=== PATIENT | female | born 1950 | race Asian ===

== ENCOUNTER → 2017-11-25 14:48 | Outpatient (CLI) | payer MEDICARE, OTHER, SELFPAY | PROVIDERS: PCP Nurse Practitioner Family; Visit Provider Nurse Practitioner Family | DX: E07.9 Disorder of thyroid, unspecified (principal); Z78.0 Asymptomatic menopausal state | CPT/HCPCS: 77080 ==

== ENCOUNTER → 2019-02-02 14:27 | Outpatient (CLI) | payer MEDICARE, OTHER, SELFPAY ==
--- NOTE | 2019-02-02 | DI.MG.S_ITS ---
BILATERAL DIGITAL SCREENING MAMMOGRAM 3D/2D WITH CAD: 02/02/2019 CLINICAL: Routine screening. Comparison is made to exams dated: 04/11/2017 mammogram and 06/17/2014 mammogram - [facility]. There are scattered fibroglandular elements in both breasts. Current study was also evaluated with a Computer Aided Detection (CAD) system. There are a grouped fine calcifications in the right breast at 11 o'clock middle depth. No other significant masses, calcifications, or other findings are seen in either breast. IMPRESSION: INCOMPLETE: NEEDS ADDITIONAL IMAGING EVALUATION The grouped fine calcifications in the right breast are indeterminate. Additional views are recommended. This exam was interpreted at Station ID: [id number]. NOTE: For mammograms, a report in lay terms will be sent to the patient. Approximately 15% of breast malignancies will not be visualized mammographically. In the management of a palpable breast mass, a negative mammogram must not discourage biopsy of a clinically suspicious lesion. Electronically Signed By: Alexandra cabezas/enrike:02/02/2019 15:43:00 letter sent: Additional Imaging Needed ACR BI-RADS Category 0: Incomplete 3340F
== END ==
PROVIDERS: PCP Nurse Practitioner Family; Visit Provider Nurse Practitioner Family
DX: Z12.31 Encounter for screening mammogram for malignant neoplasm of breast (principal)
CPT/HCPCS: 77063; 77067

== ENCOUNTER → 2019-03-13 13:32 | Outpatient (CLI) | payer MEDICARE, OTHER, SELFPAY ==
--- NOTE | 2019-03-13 | DI.MG.S_ITS ---
UNILATERAL RIGHT DIGITAL DIAGNOSTIC MAMMOGRAM 3D/2D WITH ADDITIONAL VIEWS: 03/13/2019 CLINICAL: Additional evaluation requested from prior study. Comparison is made to exams dated: 02/02/2019 mammogram, 04/11/2017 mammogram, and 06/17/2014 mammogram - [facility]. There are scattered fibroglandular elements in right breast. There are linear fine calcifications in the right breast at 10 o'clock middle depth. There also are grouped fine calcifications in the right breast at 8 o'clock middle depth. No other significant masses or calcifications are seen in the breast. IMPRESSION: PROBABLY BENIGN The linear fine calcifications in the right breast at 10 o'clock middle depth are probably benign. A follow-up mammogram in 6 months is recommended. The grouped fine calcifications in the right breast at 8 o'clock middle depth are probably benign. A follow-up mammogram in 6 months is recommended. A follow-up mammogram in 6 months is recommended to demonstrate stability. This exam was interpreted at Station ID: [id number]. NOTE: For mammograms, a report in lay terms will be sent to the patient. Approximately 15% of breast malignancies will not be visualized mammographically. In the management of a palpable breast mass, a negative mammogram must not discourage biopsy of a clinically suspicious lesion. Electronically Signed By: Zaheer garcia/enrike:03/13/2019 14:56:20 letter sent: Followup Recommended ACR BI-RADS Category 3: Probably benign 3343F
== END ==
PROVIDERS: PCP Nurse Practitioner Family; Visit Provider Nurse Practitioner Family
DX: R92.8 Other abnormal and inconclusive findings on diagnostic imaging of breast (principal); R92.1 Mammographic calcification found on diagnostic imaging of breast
CPT/HCPCS: 77065; G0279

== ENCOUNTER → 2020-02-20 08:32 | Outpatient (CLI) | payer MEDICARE, OTHER, SELFPAY ==
--- NOTE | 2020-02-20 08:56 | DI.MG.S_ITS ---
Patient Name: SKYLAR CLAUDIO date: 1950 Sex: F Attending Physician: Jalen Indications: Date: 02/20/2020 08:49 At the request of: MARVIN COX Procedure: MM diagnostic mammo BI BILATERAL DIGITAL DIAGNOSTIC MAMMOGRAM 3D/2D SHORT-TERM FOLLOW-UP: 02/20/2020 CLINICAL: Patient returns for a 6 month follow up of the right breast, due for bilateral exam. Comparison is made to exams dated: 02/02/2019 mammogram, 04/11/2017 mammogram, and 06/17/2014 mammogram - [facility]. There are scattered fibroglandular elements in both breasts. There are grouped fine calcifications in the right breast at 10 o'clock middle depth. There also are grouped fine calcifications in the right breast at 8 o'clock middle depth. No other significant masses, calcifications, or other findings are seen in either breast. IMPRESSION: PROBABLY BENIGN The grouped fine calcifications in the right breast at 10 o'clock middle depth are probably benign. The grouped fine calcifications in the right breast at 8 o'clock middle depth are probably benign. A follow-up mammogram in 6 months is recommended to demonstrate stability. This exam was interpreted at Station ID: [id number]. NOTE: For mammograms, a report in lay terms will be sent to the patient. Approximately 15% of breast malignancies will not be visualized mammographically. In the management of a palpable breast mass, a negative mammogram must not discourage biopsy of a clinically suspicious lesion. Electronically Signed By: Coleen navarro/:02/20/2020 09:15:19 letter sent: Followup Recommended ACR BI-RADS Category 3: Probably benign 3343F
== END ==
PROVIDERS: PCP Internal Medicine; Referring Provider Internal Medicine; Visit Provider Internal Medicine
DX: R92.8 Other abnormal and inconclusive findings on diagnostic imaging of breast (principal); R92.1 Mammographic calcification found on diagnostic imaging of breast
CPT/HCPCS: 77066; G0279

== ENCOUNTER → 2020-10-13 07:29 | Outpatient (CLI) | payer MEDICARE, OTHER, SELFPAY ==
--- NOTE | 2020-10-13 | DI.MG.S_ITS ---
UNILATERAL RIGHT DIGITAL DIAGNOSTIC MAMMOGRAM 3D/2D SHORT-TERM FOLLOW-UP: 10/13/2020 CLINICAL: Short term follow up of the right breast. Comparison is made to exams dated: 02/20/2020 mammogram, 03/13/2019 mammogram, 02/02/2019 mammogram, and 04/11/2017 mammogram - [facility]. There are scattered fibroglandular elements in right breast. There are stable grouped fine calcifications in the right breast at 10 o'clock middle depth. There also are stable grouped fine calcifications in the right breast at 8 o'clock middle depth. No other significant masses or calcifications are seen in the breast. IMPRESSION: PROBABLY BENIGN The stable grouped fine calcifications in the right breast at 10 o'clock middle depth are probably benign. The stable grouped fine calcifications in the right breast at 8 o'clock middle depth are probably benign. A follow-up mammogram in 6 months is recommended to demonstrate stability. Patient will also be due for left breast mammogram at that time. Exam findings were conveyed to the patient. This exam was interpreted at Station ID: [id number]. NOTE: For mammograms, a report in lay terms will be sent to the patient. Approximately 15% of breast malignancies will not be visualized mammographically. In the management of a palpable breast mass, a negative mammogram must not discourage biopsy of a clinically suspicious lesion. Electronically Signed By: Nile Lehman M.D. [facility] [place]:10/13/2020 09:29:57 letter sent: Followup Recommended ACR BI-RADS Category 3: Probably benign 3343F
== END ==
PROVIDERS: PCP Internal Medicine; Referring Provider Internal Medicine; Visit Provider Internal Medicine
DX: R92.8 Other abnormal and inconclusive findings on diagnostic imaging of breast; R92.1 Mammographic calcification found on diagnostic imaging of breast
CPT/HCPCS: 77065; G0279

== ENCOUNTER → 2021-04-04 08:02 | Outpatient (CLI) | payer MEDICARE, OTHER, SELFPAY ==
--- NOTE | 2021-04-04 08:03 | DI.MG.S_ITS ---
BILATERAL DIGITAL SCREENING MAMMOGRAM 3D/2D WITH CAD: 04/04/2021 CLINICAL: Routine screening. Comparison is made to exams dated: 10/13/2020 mammogram, 02/20/2020 mammogram, 03/13/2019 mammogram, and 02/02/2019 mammogram - [facility]. There are scattered fibroglandular elements in both breasts. Current study was also evaluated with a Computer Aided Detection (CAD) system. There are grouped fine calcifications in the left breast middle depth superior region seen on the mediolateral oblique view only. These are more prominent and increased in size. No other significant masses, calcifications, or other findings are seen in either breast. IMPRESSION: INCOMPLETE: NEEDS ADDITIONAL IMAGING EVALUATION The grouped fine calcifications in the left breast are indeterminate. Additional views with possible ultrasound are recommended. This exam was interpreted at Station ID: [id number]. NOTE: For mammograms, a report in lay terms will be sent to the patient. Approximately 15% of breast malignancies will not be visualized mammographically. In the management of a palpable breast mass, a negative mammogram must not discourage biopsy of a clinically suspicious lesion. Electronically Signed By: Alexandra cabezas/enrike:04/06/2021 09:12:57 letter sent: Additional Imaging Needed ACR BI-RADS Category 0: Incomplete 3340F
== END ==
PROVIDERS: PCP Internal Medicine; Referring Provider Internal Medicine; Visit Provider Internal Medicine
DX: Z12.31 Encounter for screening mammogram for malignant neoplasm of breast (principal)
CPT/HCPCS: 77063; 77067

== ENCOUNTER → 2021-07-29 08:39 | Outpatient (CLI) | payer MEDICARE, OTHER, SELFPAY ==
--- NOTE | 2021-07-29 | DI.MG.S_ITS ---
UNILATERAL LEFT DIGITAL DIAGNOSTIC MAMMOGRAM 3D/2D WITH ADDITIONAL VIEWS: 07/29/2021 CLINICAL: Additional evaluation requested from prior study. Comparison is made to exams dated: 04/04/2021 mammogram, 02/20/2020 mammogram, 02/02/2019 mammogram, and 04/11/2017 mammogram - [facility]. There are scattered fibroglandular elements in left breast. There are grouped fine dystrophic calcifications in the left breast at 1 o'clock middle depth. These are seen in additional views. These are more prominent than prior years, but were present in 2019 to a fairly similar extent. No other significant masses or calcifications are seen in the breast. IMPRESSION: PROBABLY BENIGN The grouped fine dystrophic calcifications in the left breast most likely are fat necrosis or a degenerating fibroadenoma and are probably benign. A follow-up left mammogram in 6 months is recommended to demonstrate stability. Findings and recommendations were conveyed to the patient at time of exam. This exam was interpreted at Station ID: [id number]. NOTE: For mammograms, a report in lay terms will be sent to the patient. Approximately 15% of breast malignancies will not be visualized mammographically. In the management of a palpable breast mass, a negative mammogram must not discourage biopsy of a clinically suspicious lesion. Electronically Signed By: Alexandra cabezas/:07/29/2021 09:50:26 letter sent: Followup Recommended ACR BI-RADS Category 3: Probably benign 3343F
== END ==
PROVIDERS: PCP Internal Medicine; Referring Provider Internal Medicine; Visit Provider Internal Medicine
DX: R92.8 Other abnormal and inconclusive findings on diagnostic imaging of breast (principal); R92.1 Mammographic calcification found on diagnostic imaging of breast
CPT/HCPCS: 77065; G0279

== ENCOUNTER → 2022-03-12 09:06 | Outpatient (CLI) | payer MEDICARE, OTHER, SELFPAY ==
--- NOTE | 2022-03-12 | DI.MG.S_ITS ---
BILATERAL DIGITAL DIAGNOSTIC MAMMOGRAM 3D/2D: 03/12/2022 CLINICAL: Short term follow up of the left breast, due for bilateral imaging. Comparison is made to exams dated: 07/29/2021 mammogram, 04/04/2021 mammogram, 10/13/2020 mammogram, 02/20/2020 mammogram, and 02/02/2019 mammogram - [facility]. There are scattered areas of fibroglandular density in both breasts (category b / 25%-50% glandular tissue). There are stable grouped fine dystrophic calcifications in the left breast at 1 o'clock middle depth. No other significant masses, calcifications, or other findings are seen in either breast. IMPRESSION: PROBABLY BENIGN The stable grouped fine dystrophic calcifications in the left breast are probably benign. A follow-up mammogram in 6 months is recommended to demonstrate stability. Based on the Tyrer Cuzick model (a risk assessment model) the patient's lifetime risk is 5.0% and her 10 year risk is 2.9%. According to the ACR, ACS, and NCCN guidelines, an annual breast MRI exam along with mammogram is recommended if the patient's lifetime risk is 20% or greater. This exam was interpreted at Station ID: [id number]. NOTE: For mammograms, a report in lay terms will be sent to the patient. Approximately 15% of breast malignancies will not be visualized mammographically. In the management of a palpable breast mass, a negative mammogram must not discourage biopsy of a clinically suspicious lesion. Electronically Signed By: Nile Lehman M.D. [facility]/:03/12/2022 10:07:06 letter sent: Followup Recommended ACR BI-RADS Category 3: Probably benign 3343F
== END ==
PROVIDERS: PCP Internal Medicine; Referring Provider Internal Medicine; Visit Provider Internal Medicine
DX: R92.1 Mammographic calcification found on diagnostic imaging of breast (principal)
CPT/HCPCS: 77066; G0279

== ENCOUNTER → 2022-10-29 09:10 | Outpatient (CLI) | payer MEDICARE, OTHER, SELFPAY ==
--- NOTE | 2022-10-29 | DI.MG.S_ITS ---
UNILATERAL LEFT DIGITAL DIAGNOSTIC MAMMOGRAM 3D/2D: 10/29/2022 CLINICAL: Patient returns for 6 month follow up on left breast for calcifications. Comparison is made to exams dated: 03/12/2022 mammogram, 07/29/2021 mammogram, 04/04/2021 mammogram, 02/20/2020 mammogram, 02/02/2019 mammogram, and 10/13/2020 mammogram - [facility]. There are scattered areas of fibroglandular density in the left breast (category b / 25%-50% glandular tissue). There are stable grouped fine dystrophic calcifications in the left breast at 1 o'clock middle depth. No other significant masses or calcifications are seen in the breast. IMPRESSION: PROBABLY BENIGN The stable grouped fine dystrophic calcifications in the left breast are probably benign. A follow-up mammogram in 6 months is recommended to demonstrate stability. Based on the Tyrer Cuzick model (a risk assessment model) the patient's lifetime risk is 4.7% and her 10 year risk is 3.0%. According to the ACR, ACS, and NCCN guidelines, an annual breast MRI exam along with mammogram is recommended if the patient's lifetime risk is 20% or greater. This exam was interpreted at Station ID: [id number]. NOTE: For mammograms, a report in lay terms will be sent to the patient. Approximately 15% of breast malignancies will not be visualized mammographically. In the management of a palpable breast mass, a negative mammogram must not discourage biopsy of a clinically suspicious lesion. Electronically Signed By: Alan velez/enrike:10/29/2022 12:55:25 letter sent: Followup Recommended ACR BI-RADS Category 3: Probably benign 3343F
== END ==
PROVIDERS: PCP Internal Medicine; Referring Provider Internal Medicine; Visit Provider Internal Medicine
DX: R92.8 Other abnormal and inconclusive findings on diagnostic imaging of breast (principal); R92.1 Mammographic calcification found on diagnostic imaging of breast
CPT/HCPCS: 77065; G0279

== ENCOUNTER → 2023-07-20 08:41 | Outpatient (CLI) | payer MEDICARE, OTHER, SELFPAY ==
--- NOTE | 2023-07-20 | DI.MG.S_ITS ---
BILATERAL DIGITAL DIAGNOSTIC MAMMOGRAM 3D/2D SHORT-TERM FOLLOW-UP: 07/20/2023 CLINICAL: Short term follow up of the left breast, due for bilateral imaging. Comparison is made to exams dated: 10/29/2022 mammogram, 03/12/2022 mammogram, 07/29/2021 mammogram, and 04/04/2021 mammogram - [facility]. There are scattered areas of fibroglandular density in both breasts (category b / 25%-50% glandular tissue). There are stable grouped fine dystrophic calcifications in the left breast at 1 o'clock middle depth. These have been stable for 2 years. No other significant masses, calcifications, or other findings are seen in either breast. IMPRESSION: BENIGN There is no mammographic evidence of malignancy. Return to annual mammogram screening schedule is recommended. Based on the Tyrer Cuzick model (a risk assessment model) the patient's lifetime risk is 4.5% and her 10 year risk is 3.0%. According to the ACR, ACS, and NCCN guidelines, an annual breast MRI exam along with mammogram is recommended if the patient's lifetime risk is 20% or greater. This exam was interpreted at Station ID: [id number]. NOTE: For mammograms, a report in lay terms will be sent to the patient. Approximately 15% of breast malignancies will not be visualized mammographically. In the management of a palpable breast mass, a negative mammogram must not discourage biopsy of a clinically suspicious lesion. Electronically Signed By: Coleen Harden M.D. lk/:07/20/2023 10:13:26 letter sent: Normal Exam ACR BI-RADS Category 2: Benign Finding(s) 3342F
== END ==
LOC: MAMMO 08:42
PROVIDERS: PCP Internal Medicine; Referring Provider Internal Medicine; Visit Provider Internal Medicine
DX: R92.8 Other abnormal and inconclusive findings on diagnostic imaging of breast (principal)
CPT/HCPCS: 77066; G0279

== ENCOUNTER → 2024-07-25 12:26 | Outpatient (CLI) | payer MEDICARE, OTHER, SELFPAY ==
--- NOTE | 2024-07-25 12:28 | DI.MG.S_ITS ---
BILATERAL DIGITAL SCREENING MAMMOGRAM 3D/2D WITH CAD: 07/25/2024 CLINICAL: Routine screening. Comparison is made to exams dated: 07/20/2023 mammogram, 03/12/2022 mammogram, 02/20/2020 mammogram, 10/29/2022 mammogram, 07/29/2021 mammogram, and 04/04/2021 mammogram - [facility]. There are scattered areas of fibroglandular density (category b / 25%-50% glandular tissue). Current study was also evaluated with a Computer Aided Detection (CAD) system. No significant masses, calcifications, or other findings are seen in either breast. There has been no significant interval change. IMPRESSION: NEGATIVE There is no mammographic evidence of malignancy. A 1 year screening mammogram is recommended. Based on the Tyrer Cuzick model (a risk assessment model) the patient's lifetime risk is 4.2% and her 10 year risk is 3.1%. According to the ACR, ACS, and NCCN guidelines, an annual breast MRI exam along with mammogram is recommended if the patient's lifetime risk is 20% or greater. This exam was interpreted at Station ID: [id number]. NOTE: For mammograms, a report in lay terms will be sent to the patient. Approximately 15% of breast malignancies will not be visualized mammographically. In the management of a palpable breast mass, a negative mammogram must not discourage biopsy of a clinically suspicious lesion. Electronically Signed By: Nanette Puente M.D., Ph.D. itzel/enrike:07/25/2024 13:15:23 letter sent: Normal Exam ACR BI-RADS Category 1: Negative
== END ==
PROVIDERS: PCP Internal Medicine; Referring Provider Internal Medicine; Visit Provider Internal Medicine
DX: Z12.31 Encounter for screening mammogram for malignant neoplasm of breast (principal)
CPT/HCPCS: 77063; 77067

== ENCOUNTER 2025-06-11 12:43 | Day surgery (SDC) | payer MEDICARE, OTHER, SELFPAY ==
[2025-05-31 10:13] VITALS: BMI 30.2
--- NOTE | 2025-06-11 | PATH_ITS ---
[facility] Accession Number: [id number] No. of containers..05 Tissue . 01 Material submitted: . PART A: stomach - ANTRUM PART B: pylorus - POLYP AT THE PYLORUS, 1CM PART C: stomach - GASTRITIS IN CARDIA PART D: stomach - POLYP AT 40CM PART E: stomach - POLYP AT 50CM . 01 Diagnosis: A. STOMACH, ANTRUM, BIOPSY: Antral mucosa with minute focus of intestinal metaplasia, mild chronic inflammation, and rare Helicobacter organisms. Positive for extremely rare Helicobacter organisms on IHC stain. Positive for intestinal metaplasia by AB/PAS. Negative for dysplasia and malignancy. . B. STOMACH, PYLORUS, POLYP: Eroded hyperplastic polyp. Negative for Helicobacter organisms on H/E stain. Negative for intestinal metaplasia, dysplasia, and malignancy. . C. STOMACH, CARDIA, BIOPSY: Chronic active Helicobacter-related gastritis. Positive for Helicobacter organisms on IHC stain. Negative for intestinal metaplasia, dysplasia, and malignancy. . D. STOMACH, POLYP AT 40 CM: Eroded inflammatory polyp with intestinal metaplasia and granulation tissue. Negative for Helicobacter organisms on H/E stain. Negative for dysplasia and malignancy. . E. STOMACH, POLYP AT 50 CM: Eroded inflammatory polyp with intestinal metaplasia and granulation tissue. Negative for Helicobacter organisms on H/E stain. Negative for dysplasia and malignancy. [facility] 06/21/2025 1547 Local . 01 Comment: Immunohistochemistry for Helicobacter organisms is performed on blocks A1 and C1 and both are positive. An AB/PAS stain is performed on block A1 and is positive for intestinal metaplasia. . - Technical Note: The immunohistochemical and/or special stains reported were performed with appropriate controls at formerly [facility] ([address], [facility] [address]). This test was developed and performance characteristics validated by [employer]. It has not been cleared or approved by the Food and Drug Administration. . 01 Electronically signed: . Sadie Jones DO, Pathologist NPI- [id number] . 01 Gross description: . A. Received in formalin with two identifiers and antrum biopsy are two conley soft tissue fragments measuring 0.4 x 0.3 cm in greatest dimension, entirely submitted in A1. B. Received in formalin with two identifiers and polyp at the pylorus 1 cm is a single brown-conley soft tissue fragment measuring 1.0 x 1.0 x 0.8 cm. The specimen is inked, trisected, and submitted entirely in B1. C. Received in formalin with two identifiers and gastritis in cardia is a single conley soft tissue fragment measuring 0.3 x 0.2 cm in greatest dimension, submitted entirely in C1 D. Received in formalin with two identifiers and polyp at 40 cm is a single conley soft tissue fragment measuring 0.8 x 0.7 x 0.7 cm. The specimen is inked, trisected, and submitted entirely in D1. E. Received in formalin with two identifiers and polyp at 50 cm is a single conley soft tissue fragment measuring 0.5 x 0.3 cm in greatest dimension and submitted entirely in E1. ([id number]) /MRV 06/17/2025 1601 Local . 01 Pathologist provided ICD-10: D50.9 . 01 CPT . 065560, 449992, 286081, 900882, 595612, [id number], 523793 Specimen Comment: A courtesy copy of this report has been sent to [facility] Pathology Performed at: [address] [address], [place], [place] [id number] MD Zaheer Hussein MD Phone: [phone]
--- NOTE | 2025-06-11 06:14 | PM.HP.IH.1 ---
History of Present Illness History of Present Illness Date Patient Seen: 06/11/25 Chief complaint: EGD & Colonoscopy w/poss bx's Narrative: Patient presents for GI endoscopy today, h/o iron deficiency anemia of unclear etiology. [facility] Medical History (Updated 05/31/25 @ 10:10 by Lexy Castillo RN) Hypercalcemia HTN (hypertension) HLD (hyperlipidemia) Polyneuropathy Diabetes Social History Smoking Status: Never smoker Meds Home Medications and Allergies Home Medications ?Medication ?Instructions ?Recorded ?Confirmed ?Type amlodipine 10 mg tablet 10 mg PO DAILY 04/22/25 04/22/25 History cholecalciferol (vitamin D3) 25 25 mcg PO DAILY 04/22/25 04/22/25 History mcg (1,000 unit) tablet cyanocobalamin (vitamin B-12) 1,000 mcg PO DAILY 04/22/25 04/22/25 History 1,000 mcg tablet dulaglutide 3 mg/0.5 mL 3 mg SUBCUT QWEEK 04/22/25 04/22/25 History subcutaneous pen injector gemfibrozil 600 mg tablet 600 mg PO BID 04/22/25 04/22/25 History hydrochlorothiazide 25 mg tablet 25 mg PO DAILY 04/22/25 04/22/25 History lisinopril 10 mg tablet 40 mg PO DAILY 04/22/25 04/22/25 History metformin 500 mg tablet 1,000 mg PO BID 04/22/25 04/22/25 History metoprolol succinate 100 mg 100 mg PO DAILY 04/22/25 04/22/25 History tablet,extended release 24 hr sitagliptin phosphate 100 mg tablet 100 mg PO DAILY 04/22/25 04/22/25 History peg 3350-electrolytes 236 240 ml PO Q10M #4,000 mL 04/24/25 Rx gram-22.74 gram-6.74 gram-5.86 gram solution (Golytely) Allergies Allergy/AdvReac Type Severity Reaction Status Date / Time No Known Drug Allergies Allergy Unverified 04/22/25 14:27 Exam Narrative Exam Narrative: Const General: healthy appearing, comfortable and no acute distress Orientation: alert and oriented x3 HENMT Ears: hearing grossly normal bilaterally Eyes Visual Sabillon: normal visual sabillon by confrontation Conjunctivae: conjunctivae normal Sclera: sclerae normal EOM: EOM intact bilaterally Resp Effort & Inspection: normal respiratory effort and able to speak in complete sentences Cardio Rate: regular rate GI Palpation: soft (NT) Extrem General: no pedal edema and no calf tenderness Assessment & Plan Assessment and plan (1) Iron deficiency anemia: Qualifiers: Iron deficiency anemia type: unspecified iron deficiency Qualified Code(s): D50.9 - Iron deficiency anemia, unspecified Status: Acute Plan Plan EGD, colonoscopy, possible biopsy. The risks, benefits and options regarding the procedure were explained to the patient in detail. Risk discussion included but not limited to: bleeding, perforation, unable to reach cecum, missed lesion. The patient was encouraged to ask questions and they were answered to their satisfaction. The patient understands and is agreeable to proceed.- Time-Based Coding :: [TOTAL MINUTES] spent with patient and on the chart (including review of chart, obtaining history, exam, reviewing outside data, placing orders, documenting exam and treatment plan, and counseling patient) on [DATE]. [employer]EE Endo Tech Document charge(s): Yes Charge Codes Initial inpatient/observation care: 21227
[2025-06-11 13:30] VITALS: BP 116/55; PULSE 70; RESP 16; TEMP 36.4; O2SAT 99
[2025-06-11] MEDS: LACTATED RINGERS 1,000 ML 42 ML IV (13:46)
--- NOTE | 2025-06-11 15:03 | PM.OP.EC ---
Operative Date/Time/Diagnoses Date of procedure: 06/11/25 Time of procedure: 16:07 Pre-op diagnosis: Iron deficiency anemia Post-op diagnosis: same Procedure & Clinicians Study performed: EGD with biopsy, polypectomy; colonoscopy with polypectomy x 2. Same procedure(s) as scheduled: Yes Indications: 75yo F, iron deficiency anemia of unclear etiology Surgeon: Slim Block Anesthesia Type: MAC +/- Procedure Notes SCOAP/Timeout: Performed Procedure in detail: EGD Informed consent was obtained. The procedure, its risks, benefits, and alternatives were discussed. Patient understood and agreed to proceed. The patient was placed in the left lateral decubitus position with head elevated. Sedation given per anesthesia. The video endoscope was inserted into the oropharynx and guided under direct vision into the esophagus, stomach, and duodenum which were carefully examined. The scope was retroflexed to examine the hiatus and gastroesophageal junction. Antral biopsies were obtained for Helicobacter pylori. The patient tolerated the procedure very well. There were no apparent complications. Significant EGD findings: Z-line noted at: 38cm 3cm hiatal hernia, elongated, no esophagitis Gastritis in cardia, biopsies taken 1cm adenomatous polyp at pylorus, on incisura side of pylorus, removed with hot snare and retrieved for pathology with polyp basket Nodular gastritis at antrum, biopsies taken Duodenum normal No ulcer in duodenum, stomach or esophagus Possible contributors to anemia could be large polyp at pylorus, gastritis Colonoscopy Patient placed in left lateral recumbent position. Time out was performed. Procedural sedation was administered by anesthesia. Examination began with a thorough inspection of the perianal area. There was no evidence of fissures, fistulae, external hemorrhoids or cutaneous malignancy. The colonoscope was then placed into the rectum and the lumen was insufflated with carbon dioxide. The scope was carefully advanced forward. Ultimately the cecum was intubated and confirmed by identification of the ileocecal valve, the appendiceal orifice and the confluence of the taenia. The scope was then slowly withdrawn examining the colon thoroughly in all directions. In the rectum, retroflexion of the scope was performed for inspection of the distal rectum and anal canal. ?Significant colonoscopy findings: ?1. Quality of the preparation-good, [place] 2-3, improved with irrigation/suction ?2. 1cm adenomatous polyp, pedunculated at 40cm in sigmoid colon, removed with hot snare and retrieved 3. 5mm adenomatous polyp at 50cm, sessile, sigmoid colon, removed with cold snare but not able to be retrieved, polyp was at difficult angle and not found after polypectomy despite prolonged searching 4. Large internal hemorrhoid columns, would be candidates for banding if symptomatic Scope withdrawal time: 10 minutes Findings: gastritis and polyp Specimen(s): other (biopsies, polyps) Estimated Blood Loss: 5 Complications: none Impression: Adenomatous polyps in stomach and colon Recommend repeat EGD/colonoscopy in 1 year given size and number of polyps Likely etiology of iron deficiency anemia is adenomatous polyps in stomach and colon Internal hemorrhoids Post-procedure Recommendations: Colonscopy in 1 year (with EGD) Plan for aftercare: PACU then home Follow up: as needed Disposition: PACU
[2025-06-11 16:00] VITALS: BP 120/64; PULSE 73; RESP 15; TEMP 36.6; O2SAT 96
[2025-06-11 16:04] VITALS: BP 137/77; PULSE 73; RESP 15; TEMP 36.6; O2SAT 99
[2025-06-11 16:09] VITALS: BP 145/81; PULSE 79; RESP 15; TEMP 36.6; O2SAT 99
== END 2025-06-11 16:53 | disposition home or self-care (01) ==
PROVIDERS: PCP Registered Nurse; Referring Provider Surgery; Visit Provider Surgery
PROC: 0DJ08ZZ Inspection of Upper Intestinal Tract, Via Natural or Artificial Opening Endoscopic (ICD-10-PCS; CPT 43251; principal; 2025-06-11 14:30)
PROC: 0DJD8ZZ Inspection of Lower Intestinal Tract, Via Natural or Artificial Opening Endoscopic (ICD-10-PCS; CPT 45378; 2025-06-11 14:30)
DX: D50.9 Iron deficiency anemia, unspecified (principal); K44.9 Diaphragmatic hernia without obstruction or gangrene; K64.8 Other hemorrhoids; I10 Essential (primary) hypertension; E78.5 Hyperlipidemia, unspecified; E11.9 Type 2 diabetes mellitus without complications; Z79.84 Long term (current) use of oral hypoglycemic drugs; Z79.85 Long-term (current) use of injectable non-insulin antidiabetic drugs; K29.50 Unspecified chronic gastritis without bleeding; K31.A0 Gastric intestinal metaplasia, unspecified; K31.7 Polyp of stomach and duodenum; B96.81 Helicobacter pylori [H. pylori] as the cause of diseases classified elsewhere
CPT/HCPCS: 43251; 43239; 45385; 82962; J2704; J7120